=== PATIENT | female | born 1945 | race Caucasian/White ===

== ENCOUNTER 2018-05-08 13:46 | Emergency (ER) | payer OTHER, MEDICAID ==
[~2018-05-08] VITALS: Ht 149.9 cm; Wt 54.4 kg
[2018-05-08] MEDS ORDERED: PLAVIX 75 MG TA75 M1 PO (14:05)
[2018-05-08] MEDS ORDERED: ZANAFLEX2 MG PO (14:05)
[2018-05-08] MEDS ORDERED: METFORMIN HCL500 MG PO (14:05)
[2018-05-08] MEDS ORDERED: CARVEDILOL3.125 MG PO (14:05)
[2018-05-08] MEDS ORDERED: COMBIVENT INH (14:38)
[2018-05-08] MEDS ORDERED: IRON325 PO (14:38)
[2018-05-08] MEDS ORDERED: POTASSIUM20 PO (14:38)
[2018-05-08] MEDS ORDERED: FLONASE 0.05%50 MCG NASAL (14:38)
[2018-05-08] MEDS ORDERED: UNICOMPLEX M TA1 TA1 PO (14:38)
[2018-05-08] MEDS ORDERED: SEROQUEL 25 MG25 M1 PO (14:38)
[2018-05-08] MEDS ORDERED: COREG25 MG PO (14:39)
[2018-05-08] MEDS ORDERED: WELLBUTRIN SR100 MG PO (14:39)
[2018-05-08] MEDS ORDERED: PROTONIX40 M1 PO (14:39)
[2018-05-08] MEDS ORDERED: COZAAR 25 MG TA25 M2 PO (14:39)
[2018-05-08] MEDS ORDERED: ZANAFLEX4 MG PO (14:39)
[2018-05-08] MEDS ORDERED: CLONIDINE0.1 PO (14:40)
[2018-05-08] MEDS ORDERED: IMDUR 60 MG TAB60 M1 PO (14:40)
[2018-05-08] MEDS ORDERED: VITAMIN D32000 UNI1 PO (14:40)
[2018-05-08 15:43] VITALS: BP 150/72
== END 2018-05-08 15:43 | disposition home or self-care (01) ==
LOC: M.ERS 13:46
DX: S51.011A Laceration without foreign body of right elbow, initial encounter (principal); S80.01XA Contusion of right knee, initial encounter; S00.83XA Contusion of other part of head, initial encounter; I10 Essential (primary) hypertension; E11.9 Type 2 diabetes mellitus without complications; M19.90 Unspecified osteoarthritis, unspecified site; Z90.710 Acquired absence of both cervix and uterus; W01.0XXA Fall on same level from slipping, tripping and stumbling without subsequent striking against object, initial encounter; Y93.89 Activity, other specified; Y92.89 Other specified places as the place of occurrence of the external cause; Y99.8 Other external cause status